=== PATIENT | male | born 1980 | race Caucasian/White ===

== ENCOUNTER 2017-06-19 12:37 | Emergency (ER) | payer OTHER ==
--- NOTE | 2017-06-19 12:59 | EDPHY ---
H & P Stated Complaint: TABLE SAW INJ L HAND - Personal History Current Tetanus Diphtheria and Acellular Pertussis (TDAP): Yes - Medical/Surgical History Hx Asthma: No Hx Chronic Respiratory Disease: No Hx Diabetes: No Hx Cardiac Disease: No Hx Renal Disease: No Hx Cirrhosis: No Hx Alcoholism: No Hx HIV/AIDS: No Hx Splenectomy or Spleen Trauma: No Other PMH: DENIES - Social History Smoking Status: Current every day smoker Time Seen by Provider: 06/19/17 12:55 Constitutional: Initial Vital Signs Temperature (C) 36.7 C 06/19/17 12:43 Heart Rate 76 06/19/17 12:43 Respiratory Rate 17 06/19/17 12:43 Blood Pressure 144/82 H 06/19/17 12:43 O2 Sat (%) 95 06/19/17 12:43 O2 Delivery Mode Room Air Allergies/Adverse Reactions: No Known Allergies Allergy (Unverified 06/19/17 12:43) Home Medications: Medication Instructions Recorded Celexa 06/19/17 Cephalexin [Keflex (RX)] 500 mg PO TID #30 cap 06/19/17 HYDROcodone/APAP [Wheatland 1 - 2 each PO Q4-6PRN PRN #20 tab 06/19/17 10/325] Medical Decision Making - Diagnostics Imaging: I viewed and interpreted images myself - Diagnostics Imaging Results: Imaging Impressions Hand X-Ray 06/19/17 13:13 Impression: Tuft injuries of the thumb, second and third digits. ED Course/Re-evaluation: CHIEF COMPLAINT: "I shoved my hand into a table saw" HISTORY OF PRESENT ILLNESS: The patient is a 37 y/o male complaining of pain and bleeding to multiple fingers on his left hand secondary to injury caused by a table saw this afternoon. 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 He had immediate pain and applied pressure to help control the bleeding. He denies any other injuries. He took what he thinks was 15mg OxyContin from a first aid kit to help with the pain. No pertinent medical history. REVIEW OF SYSTEMS: A 10 point review of systems was performed and is negative with the exception of the elements mentioned in the history of present illness. PHYSICAL EXAM: HR, BP, O2 Sat, RR. Temp noted General Appearance: Alert, well hydrated, appropriate, and non-toxic appearing. Head: Atraumatic without scalp tenderness or obvious injury Eyes: Pupils equal, round, reactive to light and accommodation, EOMI, no trauma , no injection. Nose: Atraumatic, no rhinorrhea, clear. Throat: Mucus membranes moist. Neck: Supple, atraumatic Respiratory: No retractions, no distress, no wheezes, and no accessory muscle use. Lungs are clear to auscultation bilaterally. Cardiovascular: Regular rate and rhythm, no murmurs, rubs, or gallops. Left radial pulse intact. Good capillary refill all extremities. Gastrointestinal: Abdomen is soft, nontender, non-distended, no masses, no rebound, no guarding, no peritoneal signs. Musculoskeletal: Left thumb, index, and middle fingers have deep lacerations along the radial aspect of each finger with controlled bleeding and tenderness, active ROM is intact. Otherwise normal active ROM of all extremities, atraumatic. Neurological: Alert, appropriate, and interactive. Nonfocal neuro exam. Skin: No rashes, good turgor, no nodules on palpation. Past medical history: Tetanus up-to-date Past surgical history: denies Family history: noncontributory Social history: Employed. Smoker. Lives in [place]. DIAGNOSTICS/PROCEDURES/CRITICAL CARE TIME: Left hand x-ray: daniela fractures of left thumb, index, and middle finger DIFFERENTIAL DIAGNOSIS: The differential diagnosis for the patient's injury included but was not limited to lacerations, avulsion, fracture, ligamentous and tendon injury, contusion, muscular strain. MEDICAL DECISION MAKING: This is a healthy 37 y/o male who presents with deep lacerations to his distal left thumb, index, and middle fingers secondary to a table saw injury. He has obvious open fractures to his distal phalanxes of these three digits with controlled bleeding. Motor function, sensory function, and capillary refill intact. Plan for 2gm IV Ancef administered, pain medication as needed, wound care, and hand surgery consult. Wounds numbed with 50% bupivacaine and 50% lidocaine without epi. 1345: Consulted with Dr. Bledsoe, hand surgeon. He will review imaging and call me back. 1408: Consulted with Dr. Bledsoe again. He plans to surgically repair the patient' s injuries today around 16:00 or 17:00 in the ED. Bulky dressings applied. 1500: Patient care signed out to Dr. Cartagena at shift change pending Dr. Bledsoe' repair of patient's injuries. He will be discharged home with scripts for Wheatland and Keflex and wound care instructions in addition to specific follow up instructions from Dr. Bledsoe. (Gonzalez Lofton) Other Provider: Seen by Dr. Bledsoe who assumed care in the emergency department. (Tye Cartagena) - Data Points Medications Given: Discontinued Medications Cefazolin Sodium/Dextrose (Ancef 2 Gm (Premix)) 100 mls @ 200 mls/hr IV EDNOW ONE PRN Reason: Protocol Stop: 06/19/17 13:32 Last Admin: 06/19/17 13:05 Dose: 100 mls Ketorolac Tromethamine (Toradol) 30 mg IVP EDNOW ONE Stop: 06/19/17 18:06 Last Admin: 06/19/17 18:09 Dose: 30 mg Oxycodone/Acetaminophen (Percocet 5/325) 2 tab PO EDNOW ONE Stop: 06/19/17 18:00 Last Admin: 06/19/17 18:03 Dose: 2 tab Departure - Departure Disposition: Home, Routine, Self-Care Clinical Impression: Open fracture of tuft of distal phalanx of left thumb, Open fracture of tuft of distal phalanx of finger, left thumb, index, middle fingers Nailbed laceration, finger Qualifiers: Encounter type: initial encounter Qualified Code(s): S61.319A - Laceration without foreign body of unspecified finger with damage to nail, initial encounter Finger laceration with complication Qualifiers: Encounter type: initial encounter Qualified Code(s): S61.219A - Laceration without foreign body of unspecified finger without damage to nail, initial encounter Condition: Good Instructions: Cephalexin (By mouth), Care For Your Stitches (ED), Laceration ( ED), Finger Fracture (ED) Additional Instructions: 1. Take 800mg ibuprofen every 6-8 hours for the next 3-4 days for pain and inflammation. 2. Use Wheat[place] as prescribed when needed for severe pain not controlled by ibuprofen. 3. Take Keflex as prescribed to help prevent infection. Be sure to complete the entire prescription. 4. Follow up with Dr. Bledsoe, hand surgeon, as directed for suture removal and follow up evaluation. 5. Return to the ED for severe pain, weakness or numbness, fever, or other worsening of condition. Referrals: NONE *PRIMARY CARE P,. [Primary Care Provider] - As per Instructions Francisco J Bledsoe MD [Medical Doctor] - As per Instructions Prescriptions: Cephalexin [Keflex (RX)] 500 mg PO TID #30 cap HYDROcodone/APAP 10/325 [Wheatland 10/325] 1 - 2 each PO Q4-6PRN PRN #20 tab PRN Reason: Pain, Moderate Report Scribed for: Gonzalez Lofton Report Scribed by: Nery Rhodes Date of Report: 06/19/17 Time of Report: 13:17
[2017-06-19] MEDS ORDERED: ceFAZolin 2 GM/DEXTROSE 100 ML IV ONE (13:03)
[2017-06-19] MEDS ORDERED: CEFAZOLIN 2 GM/DEXTROSE/100 ML BAG IV ONE (13:04)
[2017-06-19 14:23] VITALS: RESP 18; TEMP 98.4
[2017-06-19] MEDS ORDERED: OXYCODONE/APAP 5/325 TAB PO ONE (17:59)
[2017-06-19] MEDS ORDERED: KETOROLAC 30 MG/1 ML SDV IVP ONE (18:05)
[2017-06-19 18:27] VITALS: BP 168/85; PULSE 88; O2SAT 96
--- NOTE | 2017-06-19 19:09 | GCON ---
[f rep st] CONSULTATION ER CONSULTATION AND PROCEDURE NOTE DATE OF CONSULTATION: 06/19/2017 DIAGNOSIS: Table saw injury to thumb, 2nd and 3rd fingers with open fractures of distal phalanges o f thumb and 2nd finger, nail matrix injury to thumb, 2nd and 3rd fingers, partial amputation to thum b and 2nd finger. HISTORY OF PRESENT ILLNESS: The patient is a 37-year-old gentleman who was injured while working on a table saw. He is self-employed in construction. He indicates there was some sort of kickback to the wood that he was cutting. His thumb, index and 3rd fingers went through the saw blade, injurin g the tips of those 3 digits. ALLERGIES: None. MEDICATIONS: None. REVIEW OF SYSTEMS: Negative. PHYSICAL EXAMINATION: Patient alert, oriented, cooperative with exam. Obvious macerated laceration s are visible to the thumb, 2nd and 3rd fingers. These are thoroughly lavaged and further evaluated prior to repair in the emergency room. He is able to flex the PIP and DIP articulations of the 2nd and 3rd fingers and able to flex and extend the IP joint and MCP articulation of the thumb. Third finger laceration goes through the dorsal nail matrix. The pulp of tissue is intact volarly. There is a kerf injury to the distal phalanx. The 2nd finger has a more severe injury, with a partial lo ss of the distal phalanx in an oblique fashion, partial loss of the distal nail, macerated base of t he nail matrix, and partial loss of the pulp tissue on the tip. The thumb has a more oblique flap t ear on its ulnar border. There is missing distal phalanx. The nail matrix is partially missing and partially macerated. OPERATIVE PROCEDURE: The patient's hand was thoroughly prepped in the emergency room. He was admin istered Kefzol 2 g IV. He was up to date on his tetanus. The remaining bases of the nails were rem vidhi from the thumb, 2nd and 3rd fingers to give us better ability to repair the nail matrices to th e remaining tissue. The 3rd finger was addressed first. A digital tourniquet was applied. The bradley l matrix was debrided back to viable tissue. The volar flap of tissue was then repaired from volar to dorsal over the nail matrix. The area of the nail matrix laceration was repaired with a 5-0 Vicr yl suture. The remaining eponychial folds and laceration through the pulp of the finger tip were re paired with a 5-0 nylon suture. The tourniquet was then applied to the 2nd finger. The nail was ag ain removed. The macerated nail bed was reflected over the remaining part of the distal phalanx. T he distal phalanx was shortened down. Completion of the amputation was performed. The volar flap w as then fashioned in a [place] fashion. The flap was then brought dorsally. The eponychial folds were repaired, followed by repair of the nail matrix with a 5-0 Vicryl suture, followed by repair o f the remaining pulp tissue with a 5-0 nylon suture. The thumb was then addressed. The nail was re moved. There was an ulnar loss of the distal phalanx in a more vertical fashion. The remaining dis kartik phalanx and nail bed were evaluated. We had to shorten the phalanx a little bit to get coverage . The nail matrix was then repaired with a 5-0 nylon suture. The radial flap of tissue was questio nably viable. We elected to use it more as a biologic dressing. This was tacked down distally with a 5-0 nylon suture, volarly with a couple 5-0 nylon sutures, and to the nail matrix with 5-0 Vicryl sutures. All 3 open fractures of the distal phalanges were debrided thoroughly and lavaged prior t o doing the repairs. After doing the repairs, sterile compression dressings were applied, with a st ent placed underneath the remaining eponychial nail folds of each finger and a gauze dressing and ca ge applied. The patient tolerated the procedure well. He is to be discharged home. PLAN: The patient will follow up with Dr. Bledsoe in approximately 7 days. If he has any redness or proximal streaking, I will see him sooner. Anticipate removal of dressings and a portion of the sut ures on his first visit. He is to remain on Keflex 500 mg p.o. q.i.d. for the following week. He i s given a prescription for Percocet 1-2 tabs p.o. q.4 hours p.r.n. pain, #40. He will elevate but a void icing. /[id number]/MODL
== END 2017-06-19 18:22 | disposition home or self-care (01) ==
PROC: 0HQQXZZ Repair Finger Nail, External Approach (ICD-10-PCS; principal; 2017-06-19)
DX: S62.522B Displaced fracture of distal phalanx of left thumb, initial encounter for open fracture (principal); S62.631B Displaced fracture of distal phalanx of left index finger, initial encounter for open fracture; S61.112A Laceration without foreign body of left thumb with damage to nail, initial encounter; S62.633B Displaced fracture of distal phalanx of left middle finger, initial encounter for open fracture; S61.311A Laceration without foreign body of left index finger with damage to nail, initial encounter; S61.313A Laceration without foreign body of left middle finger with damage to nail, initial encounter; F17.200 Nicotine dependence, unspecified, uncomplicated; W31.2XXA Contact with powered woodworking and forming machines, initial encounter; Y99.8 Other external cause status; Y93.89 Activity, other specified
CPT/HCPCS: 96365; J0690; J1885